=== PATIENT | female | born 1970 | race African-American/Black ===

== ENCOUNTER 2019-08-19 09:00 | Emergency (ER) | payer OTHER ==
[~2019-08-19] VITALS: Ht 160 cm; Wt 47.0 kg
[2019-08-19 11:40] VITALS: BP 102/62
== END 2019-08-19 13:32 | disposition home or self-care (01) ==
LOC: ER 09:00
DX: G58.9 Mononeuropathy, unspecified (principal)
CPT/HCPCS: 99283; Z7610

== ENCOUNTER 2021-08-04 11:10 | Emergency (ER) | payer OTHER ==
[~2021-08-04] VITALS: Ht 160 cm; Wt 61.0 kg
[2021-08-04 11:14] VITALS: BP 119/81
== END 2021-08-04 13:21 | disposition home or self-care (01) ==
LOC: ER 11:10
DX: U07.1 COVID-19 (principal)
CPT/HCPCS: 71045; 99284; C9803; U0003; U0005

== ENCOUNTER 2024-12-22 15:32 | Emergency (ER) | payer OTHER ==
[~2024-12-22] VITALS: Ht 160 cm; Wt 54.4 kg
[2024-12-22 15:33] VITALS: BP 120/65; RESP 16; TEMP 36.6; O2SAT 99
[2024-12-22 15:39] VITALS: PULSE 115; O2SAT 97
[2024-12-22 16:57] LABS: BASOPHILS % 0.4 % (0.0-2.0); EOSINOPHILS % 0.9 % (0.0-5.0); HEMATOCRIT. 34.3 % (36.0-48.0); HEMOGLOBIN. 11.5 g/dL (12.0-16.0); LYMPHOCYTES % 39.2 % (20.0-50.0); MEAN CORPUSCULAR HEMOGLOBIN 28.1 pg (28.0-32.0); MEAN CORPUSCULAR HGB CONC 33.4 g/dL (31.0-37.0); MONOCYTES % 6.3 % (2.0-8.0); NEUTROPHILS % 53.2 % (40.0-76.0); PLATELET 264 x1000/uL (130-400); RED BLOOD CELL COUNT 4.08 mill/uL (4.2-5.4); RED CELL DISTRIBUTION WIDTH 15.3 % (11.6-14.6); WHITE BLOOD COUNT 10.3 x1000/uL (4.5-11.0)
[2024-12-22 17:04] LABS: CARBON DIOXIDE 27 mEq/L (21-32); CHLORIDE 100 mEq/L (98-107); POTASSIUM 3.5 mEq/L (3.5-5.1); SODIUM 139 mEq/L (136-145)
[2024-12-22 17:05] LABS: CALCIUM 9.2 mg/dL (8.7-10.4)
[2024-12-22 17:09] LABS: CREATININE 0.5 mg/dL (0.6-1.0); GLUCOSE 86 mg/dL (70-105)
[2024-12-22 17:10] LABS: UREA NITROGEN BLOOD 8 mg/dL (9-23)
[2024-12-22 17:11] LABS: TROPONIN I HIGH SENSITIVITY 4 ng/L (3.0-34)
[2024-12-22] MEDS ORDERED: ACETAMINOPHEN 325MG TABLET PO STA (19:12)
[2024-12-22] MEDS ORDERED: ONDANSETRON HCL 4MG/2ML INJ IV STA (19:12)
[2024-12-22] MEDS ORDERED: SODIUM CHLORIDE 0.9% 1,000 ML IV ONE (19:15)
[2024-12-22 19:33] LABS: ETHANOL BLOOD < 10 mg/dL (<10)
== END 2024-12-22 20:16 | disposition left against medical advice (07) ==
LOC: ER 15:32 → EDBEDREQ 19:17 → ER 20:16
DX: R10.9 Unspecified abdominal pain (principal); R04.2 Hemoptysis; K92.1 Melena; E11.9 Type 2 diabetes mellitus without complications; F19.11 Other psychoactive substance abuse, in remission
CPT/HCPCS: 80048; 80320; 83690; 85025; 84484; 36415; 71045; 93005; 99285; J7030; G0480